=== PATIENT | male | born 1990 | race African-American/Black ===

== ENCOUNTER 2017-08-27 11:52 | Emergency (ER) | payer SELFPAY ==
[2017-08-27 11:58] VITALS: BP 129/77
[2017-08-27] MEDS ORDERED: HYDROCODONE/ACETAMINOPHEN 5-325 MG 6 TAB/DSPK PO PRN (13:02)
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
== END 2017-08-27 14:10 | disposition home or self-care (01) ==
LOC: ER 11:52
DX: Z48.02 Encounter for removal of sutures (principal); I10 Essential (primary) hypertension; F17.210 Nicotine dependence, cigarettes, uncomplicated; Z71.6 Tobacco abuse counseling